=== PATIENT | female | born 1995 | race Two or more races ===

== ENCOUNTER 2019-07-06 09:16 | Observation (INO) | payer MEDICAID ==
[~2019-07-06 09:16] MED LIST: PREN-129 PO
== END 2019-07-06 11:30 | disposition home or self-care (01) | DRG 566 ==
LOC: LDRP 09:16
PROVIDERS: ADMIT Obstetrics & Gynecology; ATTEND Obstetrics & Gynecology
DX: O62.9 Abnormality of forces of labor, unspecified (principal); Z3A.38 38 weeks gestation of pregnancy
CPT/HCPCS: 59025; 81002; G0378

== ENCOUNTER 2019-07-06 19:33 | Inpatient (IN) | payer MEDICAID ==
[~2019-07-06] VITALS: Ht 215 cm; Wt 85.3 kg
[2019-07-06] MEDS ORDERED: LACT. RINGERS/OXYTOCIN 20UNITS 1,000 ML IV SCH (20:27)
[2019-07-06] MEDS ORDERED: NALBUPHINE HCL 10 MG/1ml INJECTION IV PRN (20:30)
[2019-07-06] MEDS ORDERED: DERMOPLAST 60ML BOTTLE TOP PRN (20:30)
[2019-07-06] MEDS ORDERED: LIDOCAINE 2%HCL (LOCAL ANESTH.) INJ 20ML MDV ID ONE (20:30)
[2019-07-06] MEDS ORDERED: CARBOPROST TROMETHAMINE 250 MCG/1ML VIAL IM PRN (20:30)
[2019-07-06] MEDS ORDERED: METHYLERGONOVINE MALEATE 0.2 MG/ML AMP IM PRN (20:30)
[2019-07-06] MEDS ORDERED: WITCH HAZEL-GLYCERIN PAD TOP PRN (20:30)
[2019-07-06] MEDS ORDERED: PHISODERM TOP SOLN 240ML BTL TOP PRN (20:30)
[2019-07-06] MEDS: LACTATED RINGER'S 1,000 ML IV SCH (20:40)
[2019-07-06] MEDS ORDERED: PENICILLIN G POT 5MIL/D5 50ML 50 ML IV ONE (21:00)
[2019-07-06 21:14] LABS: Eosinophils # (auto) 0 uL; Hemoglobin 11.8 g/dL (12.2-16.2); Lymphocytes # (auto) 2.5 uL
[2019-07-06 21:28] LABS: INR < 0.93 (0.9-1.15); Partial Thromboplastin Time 25.5 sec (23.64-32.05)
[2019-07-06 21:36] LABS: Basophils # (auto) 0 uL; Basophils % (auto) 0.3 % (0.0-2.0); Eosinophils % (auto) 0.3 % (0.0-7.0); Hematocrit 35.5 % (36.0-46.0); Lymphocytes % (auto) 18.1 % (10.0-50.0); Mean Corpuscular Hemoglobin 30.2 pg (28.0-32.0); Mean Corpuscular Hgb Conc. 33.1 g/dL (32.0-36.0); Monocytes # (auto) 0.9 uL; Monocytes % (auto) 6.3 % (0.0-12.0); Neutrophils # (auto) 10.2 uL; Nucleated Red Blood Cells % 0.1 %; Red Cell Distribution Width 13.9 % (11.8-14.3); White Blood Cell 13.6 10^3/uL (4.4-10.8)
[2019-07-06 21:38] LABS: Albumin 2.8 g/dL (3.4-5.0); Calcium 8.5 mg/dL (8.5-10.1); Potassium 3.6 mmol/L (3.5-5.1)
[2019-07-06 21:41] LABS: BUN/Creatinine Ratio 10.8; Bilirubin, Total 0.4 mg/dL (0.2-1.0); Total Protein 6.5 g/dL (6.4-8.2)
[2019-07-06 21:52] LABS: Platelet Count (auto) 81 10^3/uL (140-450)
[2019-07-07] VITALS (7 sets, daily range): BP systolic 93–117; BP diastolic 51–66
[2019-07-07] MEDS ORDERED: IBUPROFEN 600 MG TAB PO PRN (00:30)
[2019-07-07] MEDS ORDERED: PENICILLIN G POTASSIUM 2,500,000 UNITS in D5W 5% 50 ML IV SCH (01:00)
[2019-07-07 02:33] LABS: Urine Bacteria NONE SEEN /hpf (None Seen); Urine Blood Negative /uL (Negative); Urine Specific Gravity 1.008 (1.001-1.035); Urine WBC <1 /hpf (0 - 5)
[2019-07-07 02:40] LABS: Alcohol, Urine < 3.0 mg/dL (0-5); Amphetamine Screen, Urine NEGATIVE (NEGATIVE); Barbiturate Scree,Urine NEGATIVE (NEGATIVE); Benzodiazephine Screen, Urine NEGATIVE (NEGATIVE); Cannabinoid Screen, Urine NEGATIVE (NEGATIVE); Cocaine Screen, Urine NEGATIVE (NEGATIVE); Opiate Scree,Urine NEGATIVE (NEGATIVE); Phencyclidine Screen, Urine NEGATIVE (NEGATIVE)
--- NOTE | 2019-07-07 06:10 | NUR ---
Report received from HAZEL Mcgee on stable pt. Assumed care. Addendum: 07/07/19 at 0735 by Leelee Armenta RN Amended: Links added.
--- NOTE | 2019-07-07 09:40 | NUR ---
Dr. Leslie at bedside. Addendum: 07/07/19 at 1302 by Leelee Armenta RN noted charted on wrong pt.
--- NOTE | 2019-07-07 14:15 | NUR ---
Report given to Parris Veliz RN on stable pt. Relinquished care.
--- NOTE | 2019-07-07 17:30 | NUR ---
Discharge: Discharge instructions given as ordered. Pt encouraged to follow up with REGIONAL MERCHANDISING MANAGER as instructed. All questions and concerns addressed. Patient verbalized understanding.
[2019-07-08 02:48] VITALS: BP 94/50
[2019-07-08 06:50] VITALS: BP 102/52
--- NOTE | 2019-07-08 11:00 | NUR ---
Discharge: Patient taken to vehicle via wheelchair with all personal belongings, accompanied by staff and family member. No distress noted at time of departure, no adverse changes in status since initial assessment.
[2019-07-09 07:06] LABS: RPR Non Reactive (Non Reactive)
== END 2019-07-08 11:00 | disposition home or self-care (01) | DRG 560 ==
LOC: LDRP 19:33 → OBSVTOIN 19:33 → LDRP 20:47
PROVIDERS: ADMIT Specialist; ATTEND Specialist
PROC: 10E0XZZ Delivery of Products of Conception, External Approach (ICD-10-PCS; principal; 2019-07-07)
DX: O80 Encounter for full-term uncomplicated delivery (principal); Z37.0 Single live birth; Z3A.38 38 weeks gestation of pregnancy
CPT/HCPCS: 36415; 59025; 59409; 80053; 80307; 81001; 81002; 84112; 85025; 85610; 85730; 86592; 86850; 86900; 86901; 96365; 96366; G0378; J2540; J2590; J7060

== ENCOUNTER 2024-10-16 11:12 | Observation (INO) | payer MEDICAID ==
--- NOTE | 2024-10-16 12:25 | DVH ---
Procedure: US BIOPHYSICAL PROFILE 10/16/2024 12:08 PM Indication: r/o IUGR Comparison: None Technique: Sonogram of gravid uterus utilizing grayscale and color techniques. FINDINGS: Single living intrauterine gestation. Presentation: Cephalic Placenta: Posterior heart rate: 164 bpm MARITA: 13.9 cm Maternal cervix: Not visualized Biophysical Profile: breathing score: 2 movement score: 2 tone: 2 Quantitative MARITA score: 2 Total score: 8/8 IMPRESSION: 1. Single living as above. 2. Biophysical profile score: 8/8.
== END 2024-10-16 13:22 | disposition home or self-care (01) ==
LOC: LDRP 11:12
PROVIDERS: ADMIT Obstetrics & Gynecology; ATTEND Obstetrics & Gynecology
DX: O36.5930 Maternal care for other known or suspected poor fetal growth, third trimester, not applicable or unspecified (principal); Z98.890 Other specified postprocedural states; Z79.899 Other long term (current) drug therapy; Z3A.36 36 weeks gestation of pregnancy
CPT/HCPCS: 59025; 76818; 81002; G0378

== ENCOUNTER → 2024-10-16 | Outpatient (CLI) | payer MEDICAID ==
[2024-10-16 10:55] LABS: Urine Bacteria None Seen /hpf (None Seen)
[2024-10-16 11:12] LABS: Basophils # (auto) 0 10 ^3/uL (0-0.2); Basophils % (auto) 0.3 % (0.0-2.0); Eosinophils # (auto) 0.1 10 ^3/uL (0-0.8); Eosinophils % (auto) 0.6 % (0.0-7.0); Hematocrit 36.1 % (36.0-46.0); Hemoglobin 12.1 g/dL (12.2-16.2); Lymphocytes # (auto) 2.2 10 ^3/uL (0.4-5.4); Lymphocytes % (auto) 19.5 % (10.0-50.0); Mean Corpuscular Hemoglobin 30.7 pg (28.0-32.0); Mean Corpuscular Hgb Conc. 33.4 g/dL (32.0-36.0); Mean Corpuscular Volume 91.8 fL (80.0-100.0); Monocytes # (auto) 0.5 10 ^3/uL (0-1.3); Monocytes % (auto) 4.7 % (0.0-12.0); Neutrophils # (auto) 8.4 10 ^3/uL (1.6-8.6); Neutrophils % (auto) 74.9 % (37.0-80.0); Platelet Count (auto) 85 10^3/uL (140-450); Red Blood Cells 3.93 10^6/uL (4.0-5.20); Red Cell Distribution Width 12.8 % (11.8-14.3); White Blood Cell 11.1 10^3/uL (4.4-10.8)
[2024-10-16 11:17] LABS: Urine Blood Negative /uL (Negative); Urine Clarity Clear (Clear); Urine Color Light-Yellow (Yellow); Urine Protein, UAD Negative (Negative); Urine Specific Gravity 1.015 (1.001-1.035); Urine Squamous Epithelial Cell FEW /hpf (<5); Urine Urobilinogen Normal (Negative); Urine WBC 1 /hpf (0 - 5); Urine pH 6.5 (5.0-9.0)
[2024-10-16 11:28] LABS: Giant Platelets Moderate; Platelet Estimate Decrea
[2024-10-16 11:33] LABS: Alanine Aminotransferase 15 U/L (7-40); Albumin 3.8 g/dL (3.2-4.8); Anion Gap 9 (5-15); Aspartate Aminotransferase 20 U/L (13-40); Calcium 9.3 mg/dL (8.7-10.4); Carbon Dioxide 21 mmol/L (20-31); Potassium 3.6 mmol/L (3.5-5.1); Sodium 138 mmol/L (136-145)
[2024-10-16 11:34] LABS: Bilirubin, Total 0.4 mg/dL (0.2-1.0); Total Protein 6.5 g/dL (5.7-8.2)
[2024-10-16 11:36] LABS: Alkaline Phosphatase 198 U/L (46-116); Blood Urea Nitrogen 7 mg/dL (9-23); Chloride 108 mmol/L (98-107); Free T4 (Free Thyroxine) 0.83 ng/dL (0.89-1.76); Glucose 110 mg/dL (74-106); T3 Total 1.62 ng/mL (0.60-1.81)
[2024-10-16 11:37] LABS: Ferritin 6.6 ng/mL (10-291)
[2024-10-16 11:52] LABS: Iron 71 ug/dL (50-170)
[2024-10-16 11:55] LABS: Total Iron Binding Capacity 546 ug/dL (250-425)
[2024-10-16 12:31] LABS: RUBELLA Positive
[2024-10-17 07:06] LABS: RPR Non Reactive (Non Reactive)
[2024-10-17 09:06] LABS: T3 Uptake 12 % (24-39); Thyroid Peroxidase (TPO) Ab 23 IU/mL (0-34)
[2024-10-17 11:06] LABS: Thyroglobulin Antibody <1.0 IU/mL (0.0-0.9)
[2024-10-20 13:06] LABS: QuantiFERON-TB Gold Plus Positive (Negative)
[2024-10-21 13:06] LABS: Treponema Pallidum Ab LC Non Reactive (Non Reactive)
== END | disposition home or self-care (01) ==
LOC: LAB 10:34
PROVIDERS: ATTEND Nurse Practitioner Women's Health
DX: Z34.00 Encounter for supervision of normal first pregnancy, unspecified trimester (principal); Z36.0 Encounter for antenatal screening for chromosomal anomalies; N39.0 Urinary tract infection, site not specified
CPT/HCPCS: 36415; 80053; 81001; 82306; 82728; 82951; 83036; 83540; 83550; 84436; 84439; 84443; 84479; 84480; 85025; 86376; 86592; 86703; 86762; 86780; 86800; 86850; 86900; 86901; 87086; 87340; 87902

== ENCOUNTER 2024-10-19 10:08 | Observation (INO) | payer MEDICAID ==
--- NOTE | 2024-10-19 10:50 | DVH ---
CLINICAL HISTORY: Intrauterine growth restriction. COMPARISON: US BIOPHYSICAL PROFILE on DOS: 10/16/24 TECHNIQUE: biophysical profile was performed. Transabdominal sonographic images of the fetus we re obtained. FINDINGS: The fetus is in cephalic position. heart rate measures 141 BPM. Amniotic fluid index measures 12.5 cm. The placenta is posterior in position. No placenta previa or abruption seen. BPP profile is an overall score of 8/8, with 2/2 points for breathing, with at least one episode of breathing over a 30 second duration during a 30 minute observation, 2/2 points for m ovements, with 3 or more discrete body or limb movements, 2/2 points for tone, with one or more episodes of extremity extension with return to flexion, or opening and closing of hand, and 2/ 2 points for amniotic fluid, with at least 1 pocket of amniotic fluid that measures 2 cm in 2 perpend icular planes. IMPRESSION: BPP score of 8/8.
--- NOTE | 2024-10-19 12:34 | DVHDS2 ---
Physician Discharge Progress N Final Diagnosis: Suspected growth restriction Secondary Diagnosis: Encounter for surveillance Operations or Procedures: Operations or Procedures NST/BPP/MARITA all normal PATIENT: LIDIA PINA ACCT: [id number] UNIT: [id number] : 1995 LOC: LD ROOM / BED: TRIAGE2 / A AGE / SEX: 29 / F ADM STATUS: ADM IN SERVICE 1019 ORDERING PHYSICIAN: CINDY BAUER DO PROCEDURE(s): BPP - BIOPHYSICAL PROFILE REASON: IUGR ORDER NUMBER(s): [id number], ACCESSION NUMBER(s): [id number] CLINICAL HISTORY: Intrauterine growth restriction. COMPARISON: US BIOPHYSICAL PROFILE on DOS: 10/16/24 TECHNIQUE: biophysical profile was performed. Transabdominal sonographic images of the fetus were obtained. FINDINGS: The fetus is in cephalic position. heart rate measures 141 BPM. Amniotic fluid index measures 12.5 cm. The placenta is posterior in position. No placenta previa or abruption seen. BPP profile is an overall score of 8/8, with 2/2 points for breathing, with at least one episode of breathing over a 30 second duration during a 30 minute observation, 2/2 points for movements, with 3 or more discrete body or limb movements, 2/2 points for tone, with one or more episodes of extremity extension with return to flexion, or opening and closing of hand, and 2/2 points for amniotic fluid, with at least 1 pocket of amniotic fluid that measures 2 cm in 2 perpendicular planes. IMPRESSION: BPP score of 8/8. ATED BY: PAKO MAYBERRY DO DICTATED DATE/TIME: 10/19/241046 SIGNED BY: PAKO MAYBERRY DO SIGNED DATE/TIME: 10/19/241046 Condition on Discharge: Stable Disposition: Home Discharge Instructions: Diet: Regular Activity: No Restrictions, As Tolerated Follow Up/Referral: As scheduled Medications: N/A Follow Up Care: Discharge Statement: "Patient was advised to return to the ER or call 911 if any headaches, dizziness, shortness of breath, chest pain, abdominal pain, bleeding, fevers, or worsening of medical condition. Patient was counseled about treatment plan, medications, possible side effects, patientverbalized understanding. All questions were answered to the best of my ability. This discharge took greater then 30 minutes in planning, reviewing documentation, counseling the patient, and discussing with other team members." CINDY BAUER DO Oct 19, 2024 12:34
== END 2024-10-19 11:27 | disposition home or self-care (01) ==
LOC: LDRP 10:08
PROVIDERS: ADMIT Obstetrics & Gynecology; ATTEND Obstetrics & Gynecology
DX: O36.5130 Maternal care for known or suspected placental insufficiency, third trimester, not applicable or unspecified (principal); Z3A.37 37 weeks gestation of pregnancy; Z79.899 Other long term (current) drug therapy; Z98.890 Other specified postprocedural states
CPT/HCPCS: 59025; 76818; 81002; G0378

== ENCOUNTER 2024-10-22 10:05 | Observation (INO) | payer MEDICAID ==
--- NOTE | 2024-10-22 10:51 | DVH ---
CLINICAL HISTORY: Intrauterine growth restriction. COMPARISON: US BIOPHYSICAL PROFILE on DOS: 10/19/24, US BIOPHYSICAL PROFILE on DOS: 10/16/24 TECHNIQUE: biophysical profile was performed. Transabdominal sonographic images of the fetus we re obtained. FINDINGS: The fetus is in cephalic position. heart rate measures 130 BPM. Amniotic fluid index measures 12.4 cm. The placenta is fundal in position, with no sonographic evidence of previa or abrup tion. BPP profile is an overall score of 8/8, with 2/2 points for breathing, with at least one episode of breathing over a 30 second duration during a 30 minute observation, 2/2 points for m ovements, with 3 or more discrete body or limb movements, 2/2 points for tone, with one or more episodes of extremity extension with return to flexion, or opening and closing of hand, and 2/ 2 points for amniotic fluid, with at least 1 pocket of amniotic fluid that measures 2 cm in 2 perpend icular planes. IMPRESSION: BPP score of 8/8.
--- NOTE | 2024-10-22 21:04 | DVHDS2 ---
Physician Discharge Progress N Final Diagnosis: testing for IUGR Operations or Procedures: Operations or Procedures 29yo IUP@37.3wks, Denies UCs/LOF/VB/JACKSON/vision changes/RUQ pain. Endorses +FM. VSS UA wnl NST reactive BPP wnl kick counts and Preeclampsia warning signs reviewed. Labor precautions given and when to return to the hospital. Condition on Discharge: Stable Disposition: Home Discharge Instructions: Diet: Regular Activity: No Restrictions, As Tolerated Medications: see med list Follow Up Care: Specialist: f/u in 3 days Discharge Statement: "Patient was advised to return to the ER or call 911 if any headaches, dizziness, shortness of breath, chest pain, abdominal pain, bleeding, fevers, or worsening of medical condition. Patient was counseled about treatment plan, medications, possible side effects, patientverbalized understanding. All questions were answered to the best of my ability. This discharge took greater then 30 minutes in planning, reviewing documentation, counseling the patient, and discussing with other team members." MAT PLUNKETT CNM Oct 22, 2024 21:04
== END 2024-10-22 11:08 | disposition home or self-care (01) ==
LOC: UNDOADMOB 10:05 → LDRP 10:05 → UNDODISOB 11:08
PROVIDERS: ADMIT Obstetrics & Gynecology; ATTEND Obstetrics & Gynecology
DX: O36.5130 Maternal care for known or suspected placental insufficiency, third trimester, not applicable or unspecified (principal); Z3A.37 37 weeks gestation of pregnancy; Z79.899 Other long term (current) drug therapy
CPT/HCPCS: 59025; 76818; 81002; 94760; G0378

== ENCOUNTER 2024-11-13 11:48 | Inpatient (IN) | payer MEDICAID ==
[~2024-11-13] VITALS: Ht 170.2 cm; Wt 81.6 kg
[2024-11-13] MEDS ORDERED: NALBUPHINE HCL 10 MG/1ml INJECTION IV PRN (12:30)
[2024-11-13] MEDS ORDERED: NALBUPHINE HCL 10 MG/1ml INJECTION IM PRN (12:30)
[2024-11-13] MEDS ORDERED: LIDOCAINE 2%HCL (LOCAL ANESTH.) INJ 20ML MDV IJ PRN (12:30)
[2024-11-13 13:10] LABS: Urine Bacteria None Seen /hpf (None Seen)
[2024-11-13] MEDS ORDERED: TERBUTALINE SULFATE 1 MG/ML 1ML VIAL SC PRN (13:15)
--- NOTE | 2024-11-13 13:16 | DVHHP2 ---
OB CC & HPI Date Date of Admission: Nov 13, 2024 Patient Identification: : 4 Para: 2 EDC: Nov 09, 2024 EGA: 40wks Chief Complaints: Reason for admission: active labor, other (early labor) Admission Nurse Assessment Rev: No History of Present Complaints pt is admitted for early labor,no rom or vag bleeding Past Medical History Cardiac: No pertinent Hx Pulmonary: No pertinent Hx Central Nervous System: No pertinent Hx GI: No pertinent Hx Hemotology/Oncology: No pertinent Hx Hepatobiliary: No pertinent Hx Psychiatric: No pertinent Hx Musculoskeletal: No pertinent Hx Rheumotologic: No pertinent Hx Infectious Disease: No peritnent Hx ENT: No pertinent Hx Renal/: No pertinent Hx Endocrine: No pertinent Hx Dermatology: No pertinent Hx Past Surgical History: No pertinent Hx OB History OB History Care: Good Care Ultrasounds: Normal mid trimester US Obstetrical Complications: None Medical Complications: None Allergies: Coded Allergies: NO KNOWN ALLERGIES (Unverified , 03/06/14) Home Meds Reported Medications Vit W/ Ferrous Fumara () Tab, 1 TAB PO DAILY, TAB 03/07/14 Current Medications Current Medications Medications (Trade) Dose Ordered Sig/Veronica Route PRN Reason Start Time Stop Time Status Last Admin Lactated Ringer's 1,000 ml @ 125 mls/hr Q8H IV 11/13/24 12:30 Nalbuphine HCl (Nubain) 10 mg Q4HP PRN IM MODERATE PAIN (4-6 PAIN SCALE) 11/13/24 12:30 Nalbuphine HCl (Nubain) 10 mg Q4HP PRN IV MODERATE PAIN (4-6 PAIN SCALE) 11/13/24 12:30 Witch Ivy (Tucks) 1 pad PRN PRN TOP PERINEAL AREA DISCOMFORT 11/13/24 12:30 Sodium Lauryl Sulfate (Phisoderm) 240 ml PRN PRN TOP PERINEAL AREA DISCOMFORT 11/13/24 12:30 Benzocaine (Dermoplast) 1 applic PRN PRN TOP PERINEAL AREA DISCOMFORT 11/13/24 12:30 Lidocaine HCl (Xylocaine) 20 ml ONCE PRN IJ PERINEAL AREA DISCOMFORT 11/13/24 12:30 Family & Social History Family/Social History Blood Type: Unknown Rubella: unknown RPR/VDRL: Unknown GBS Status: Unknown HBsAG: Unknown Review of Systems Constitutional: No symptom reported Ears, Nose, & Throat: No symptom reported Eyes: No symptom reported Pulmonary/Respiratory: No symptom reported Cardiovascular: No symptom reported Gastrointestinal: No symptom reported Genitourinary: No symptom reported Musculoskeletal: No symptom reported Skin: No symptom reported Psychiatric: No symptom reported Endocrine: No symptom reported Hemotologic/Lymphatic: No symptom reported OB Admission Exam Physical Exam HEENT: TMs Normal, Fontanelles Normal, Nasal Mucosa Normal, Eyes non-injected, Oropharynx Normal, PERRLA, Moist Membranes, EOMI Heart: Rhythm Normal Lungs: Clear Abdomen: Non tender Extremities: Normal Reflexes: Normal Cervical Dilatation: 3cm Effacement: 50% Station: -2 Membranes: Intact Heart Rate: 130's Accelerations: Accelerations Present Decelerations: No Decelerations Short Term Variability: Present [facility] Variability: Average (6-25) Contractions on Admission: 6-10 Minutes Apart Intensity: Moderate OB Plan Plan Admitting Diagnosis: early labor Plan: Expectant Management Induction Methd: Pitocin protocol Other Plan: informed consent obtained Visit Coding OBGYN Date of Service: Nov 13, 2024 Billing Provider: AMBROCIO PAUL DO FUSE SPOOLER Common Visit Codes: [id number] OBS CARE (HIGH) AMBROCIO PAUL DO Nov 13, 2024 13:16
[2024-11-13 13:40] LABS: Anion Gap 9 (5-15); Aspartate Aminotransferase 17 U/L (13-40); Calcium 9.3 mg/dL (8.7-10.4); Carbon Dioxide 21 mmol/L (20-31); Chloride 106 mmol/L (98-107); Glucose 74 mg/dL (74-106); Potassium 4.1 mmol/L (3.5-5.1); Sodium 136 mmol/L (136-145)
[2024-11-13 13:41] LABS: Albumin 4.1 g/dL (3.2-4.8); Basophils # (auto) 0.1 10 ^3/uL (0-0.2); Basophils % (auto) 0.6 % (0.0-2.0); Bilirubin, Total 0.6 mg/dL (0.2-1.0); Eosinophils # (auto) 0 10 ^3/uL (0-0.8); Eosinophils % (auto) 0.2 % (0.0-7.0); Hematocrit 36.1 % (36.0-46.0); Hemoglobin 11.8 g/dL (12.2-16.2); Lymphocytes % (auto) 14.4 % (10.0-50.0); Mean Corpuscular Hgb Conc. 32.7 g/dL (32.0-36.0); Mean Corpuscular Volume 91.7 fL (80.0-100.0); Monocytes # (auto) 0.8 10 ^3/uL (0-1.3); Monocytes % (auto) 5.5 % (0.0-12.0); Neutrophils # (auto) 11.3 10 ^3/uL (1.6-8.6); Neutrophils % (auto) 79.3 % (37.0-80.0); Nucleated Red Blood Cells % 0.1 %; Platelet Count (auto) 81 10^3/uL (140-450); Red Blood Cells 3.94 10^6/uL (4.0-5.20); Red Cell Distribution Width 13.8 % (11.8-14.3); Total Protein 6.7 g/dL (5.7-8.2); White Blood Cell 14.2 10^3/uL (4.4-10.8)
[2024-11-13 13:45] LABS: Alanine Aminotransferase < 9 U/L (7-40); Alkaline Phosphatase 283 U/L (46-116); BUN/Creatinine Ratio 6.9 (10.0-20.0); Blood Urea Nitrogen < 5 mg/dL (9-23)
[2024-11-13 13:46] LABS: Urine Blood Negative /uL (Negative); Urine Clarity Clear (Clear); Urine Color Light-Yellow (Yellow); Urine Protein, UAD Negative (Negative); Urine Specific Gravity 1.006 (1.001-1.035); Urine Squamous Epithelial Cell FEW /hpf (<5); Urine Urobilinogen Normal (Negative); Urine WBC 3 /HPF (0-5); Urine pH 6.5 (5.0-9.0)
[2024-11-13 13:52] LABS: INR 0.94 (0.9-1.15); Partial Thromboplastin Time 30.6 SEC (24.5-34.5)
[2024-11-13 13:57] LABS: Fern Testing Negative
[2024-11-13 14:06] LABS: Amphetamine Screen, Urine Neg (NEGATIVE); Barbiturate Scree,Urine Neg (NEGATIVE); Opiate Scree,Urine Neg (NEGATIVE); Phencyclidine Screen, Urine Neg (NEGATIVE)
[2024-11-13 14:07] LABS: Benzodiazephine Screen, Urine Neg (NEGATIVE); Cannabinoid Screen, Urine Neg (NEGATIVE); Cocaine Screen, Urine Neg (NEGATIVE)
[2024-11-13] MEDS: PHISODERM TOP SOLN 240ML BTL TOP PRN (14:07)
[2024-11-13] MEDS: DERMOPLAST 60ML BOTTLE TOP PRN (14:07)
[2024-11-13] MEDS: WITCH HAZEL-GLYCERIN PAD TOP PRN (14:07)
[2024-11-13] MEDS: PENICILLIN G POT 5MIL/D5 50ML 50 ML IV ONE (14:30)
[2024-11-13] MEDS: LACT. RINGERS/OXYTOCIN 20UNITS 1,000 ML IV SCH (14:31)
[2024-11-13 15:27] LABS: Large Platelets FEW
[2024-11-13 15:28] LABS: Giant Platelets Moderate; Platelet Estimate Decreased
[2024-11-13] MEDS ORDERED: ePHEDrine SULFATE 50 MG/ML AMP IV ONE (16:00)
[2024-11-13] MEDS: LACTATED RINGER'S 1,000 ML IV SCH (16:10)
[2024-11-13] MEDS ORDERED: ROPIVACAINE HCL 400mg/200ml BAG (2mg/ml) INJ ONE (16:10)
[2024-11-13] MEDS: ROPIVACAINE HCL 200 ML ONE (16:13)
[2024-11-13] MEDS: LACT. RINGERS/OXYTOCIN 20UNITS 500 ML IV ONE ×2 (17:55)
[2024-11-13] MEDS ORDERED: PENICILLIN G POTASSIUM 2,500,000 UNITS in D5W 5% 50 ML IV SCH (18:15)
[2024-11-13] MEDS ORDERED: ACETAMINOPHEN 325 MG TAB PO PRN (18:15)
--- NOTE | 2024-11-13 18:35 | LDN2 ---
Labor and Delivery Note Date 11/13/24 Age 29 5 Para 5 now AB 0 EDC 11/09/2024 EGA 40.4 Diagnosis IOL for Postdates then Vaginal Delivery: VTX Vacuum Assisted: No Placenta: Spontaneous Sex: Male Weight PENDING Apgars 8/9 Nuchal Cord Transected: No (THIN) Amniotic Fluid: Meconium Stained, Thin Anesthesia EPIDURAL Episiotomy: No Extension: No Repaired with N/A EBL QBL: 350 mL Labs Laboratory Tests 10/16/24 10:45: Hepatitis B Surface Antigen Negative, HIV (1&2) Antibody Negative, Rubella Antibody Positive Blood Bank 11/13/24 12:38: Blood Type A POSITIVE Complications NONE Conditions STABLE Emd Teacher Cisco SANDERS Comments/Significant Med Giancarlo At 1709 this 29yo now delivered a viable Male infant by w/ APGARS 8/9. MAHENDRA with compound presentation. Infant placed skin to skin on pts chest. Cord clamped and cut after pulsation ceased. Intact 3-vessel cord placenta delivered spontaneously, Josafat. Pitocin IV bolus started. Patient had epidural. Cervix/vagina inspected (intact) and intact perineum. periurethral abrasions noted; hemostatic, not repaired Fundus at U, firm, midline, and light lochia. QBL 350 ml. VSS. Count correct x2. Patient to care and baby to couplet care, both stable. Visit Coding OBGYN Date of Service: Nov 13, 2024 Billing Provider: MAT PLUNKETT CNM CUSTOMER CARE ASSISTANT Common Visit Codes: [id number] INP/OBS CARE(MOD) CUSTOMER CARE ASSISTANT Procedure Codes: 83127-MLC DEL INCLUDING ELYSIA CARPENTER STDYesenia SANDERSWF Nov 13, 2024 18:35
[2024-11-13] MEDS: IBUPROFEN 600 MG TAB PO PRN (18:59)
[2024-11-13] MEDS: DOCUSATE SOD 100 MG CAP PO SCH (22:00)
[2024-11-13] MEDS ORDERED: PREN-129 PO (22:24)
[2024-11-13] MEDS ORDERED: IBU600T PO (22:24)
[2024-11-13] MEDS ORDERED: DOCU-265 PO (22:24)
[2024-11-13 23:00] VITALS: BP 109/59; PULSE 71; RESP 16; TEMP 97.9; O2SAT 95
--- NOTE | 2024-11-14 00:38 | DVHPN2 ---
Progress Note Date Seen: Nov 14, 2024 Subjective S: bleeding is less, eating food without issues, denies lightheaded/dizziness, pain well controlled with oral medications, no concerns with urinating, passing flatus, no BM yet, ambulating well, well vital signs Vital Sign Date Time Temp Pulse Resp B/P (MAP) Pulse Ox O2 Delivery O2 Flow Rate FiO2 11/13/24 23:00 97.9 71 16 109/59 (76) 95 97.9 11/13/24 19:50 Room Air Total Intake and Output 11/13/24 11/13/24 11/14/24 15:00 23:00 07:00 Output Total 1700 ml Balance -1700 ml medications Current Medications Medications Dose Ordered Sig/Veronica Route Start Time Stop Time Status Last Admin Dose Admin Claudia Haynes 1 pad PRN PRN TOP 11/13/24 12:30 11/13/24 14:07 1 PAD Sodium Lauryl Sulfate 240 ml PRN PRN TOP 11/13/24 12:30 11/13/24 14:07 240 ML Benzocaine 1 applic PRN PRN TOP 11/13/24 12:30 11/13/24 14:07 1 APPLIC Ibuprofen 600 mg Q6HP PRN PO 11/13/24 18:15 11/13/24 18:59 600 MG Acetaminophen 650 mg Q6HPRN PRN PO 11/13/24 18:15 Docusate Sodium 200 mg HS PO 11/13/24 22:00 Prenat Multivit/ Braddock/Iron/Folic Ac 1 DAILY PO 11/14/24 10:00 laboratory and microbiology Laboratory Tests 11/13/24 12:38 Test 11/13/24 12:38 Range/Units Serum Glucose 74 74-106 mg/dL Objective O: VSS Chest: heart sounds normal and lung sounds clear bilaterally Abd: soft, non-tender, fundus at U/firm/midline, active bowel sounds, no rebound or guarding Perineum: intact, no erythema/edema noted Ext: Non-tender, No edema, 2+ BLE DTRs Lochia: minimal See lab results Problems(with codes): (1) (normal spontaneous vaginal delivery) (2) Intact perineum Assessment/Plan A: 29yo now PPD#1 s/p Rh+ P: D/C home this evening Rx sent to pharmacy precautions and preeclampsia warning signs reviewed F/U with [facility] OB office in 2 weeks Plan discussed with: Patient, Spouse Visit Coding OBGYN Date of Service: Nov 14, 2024 Billing Provider: MAT PLUNKETT CNM DRESSED POULTRY GRADER Common Visit Codes: [id number] INP/OBS CARE(MOD) MAT PLUNKETT CNM Nov 14, 2024 00:38
--- NOTE | 2024-11-14 00:41 | DVHDS2 ---
Obstetrics Discharge Summary Obstetrics Discharge Summary Date of Admission: Nov 13, 2024 Date of Discharge: Nov 14, 2024 Reason For Admission: Onset of Labor Procedures: NST Intrapartum Procedures: Spontaneous vaginal deliv Procedures: Hct/date: (11/14/2024), Hgb/date: (11/14/2024) Operative Complicat: None Discharge Diagnosis: Term -Delivered Discharge Information: Activity (as tolerated, no heavy lifting and nothing in the vagina for 6 weeks), Diet (Routine), Medications (RX sent ), Instructions (Routine), Discharge to (Home), Accompanied by (partner), Discarge date (11/14/2024) Visit Coding OBGYN Date of Service: Nov 14, 2024 Billing Provider: MAT PLUNKETT CNM FLOOR LAYER APPRENTICE Common Visit Codes: 12059-DOJ/OBS DISCH DAY <30MIN MAT PLUNKETT CNM Nov 14, 2024 00:41
[2024-11-14 03:00] VITALS: BP 106/64; PULSE 62; RESP 18; TEMP 97.8; O2SAT 97
[2024-11-14 06:06] LABS: RPR Non Reactive (Non Reactive)
[2024-11-14 07:30] VITALS: BP 119/74; PULSE 64; RESP 16; TEMP 97.5; O2SAT 100
[2024-11-14 08:40] LABS: Basophils # (auto) 0 10 ^3/uL (0-0.2); Basophils % (auto) 0.3 % (0.0-2.0); Eosinophils # (auto) 0 10 ^3/uL (0-0.8); Eosinophils % (auto) 0.4 % (0.0-7.0); Hematocrit 34.5 % (36.0-46.0); Hemoglobin 11.4 g/dL (12.2-16.2); Lymphocytes # (auto) 2.1 10 ^3/uL (0.4-5.4); Lymphocytes % (auto) 15.9 % (10.0-50.0); Mean Corpuscular Hemoglobin 30.4 pg (28.0-32.0); Mean Corpuscular Hgb Conc. 33.2 g/dL (32.0-36.0); Mean Corpuscular Volume 91.7 fL (80.0-100.0); Monocytes # (auto) 0.9 10 ^3/uL (0-1.3); Monocytes % (auto) 6.6 % (0.0-12.0); Neutrophils % (auto) 76.8 % (37.0-80.0); Nucleated Red Blood Cells % 0.1 %; Platelet Count (auto) 79 10^3/uL (140-450); Red Blood Cells 3.76 10^6/uL (4.0-5.20); Red Cell Distribution Width 13.6 % (11.8-14.3)
[2024-11-14 11:15] VITALS: BP 113/74; PULSE 70; RESP 14; TEMP 97.8; O2SAT 95
[2024-11-14] MEDS: CARBOPROST TROMETHAMINE 250 MCG/1ML VIAL IM ONE (11:53)
[2024-11-14] MEDS: METHYLERGONOVINE MALEATE 0.2 MG/ML AMP IM ONE (11:53)
[2024-11-14] MEDS: LACTATED RINGER'S 1,000 ML IV ONE (11:53)
[2024-11-14] MEDS: DIPHENOXYLATE W/ATROPINE 2.5 MG TAB ONE (11:54)
[2024-11-14] MEDS: PRENATAL VITAMIN TAB PO SCH (11:59)
[2024-11-14 15:30] VITALS: BP 111/64; PULSE 80; RESP 16; TEMP 98; O2SAT 97
== END 2024-11-14 18:28 | disposition home or self-care (01) | DRG 560 ==
LOC: LDRP 11:48 → OBSVTOIN 12:23 → LDRP 21:27
PROVIDERS: ADMIT Obstetrics & Gynecology; ATTEND Obstetrics & Gynecology
PROC: 10E0XZZ Delivery of Products of Conception, External Approach (ICD-10-PCS; principal; 2024-11-13)
PROC: 3E0R3BZ Introduction of Anesthetic Agent into Spinal Canal, Percutaneous Approach (ICD-10-PCS; 2024-11-13)
PROC: 3E0R33Z Introduction of Anti-inflammatory into Spinal Canal, Percutaneous Approach (ICD-10-PCS; 2024-11-13)
DX: O48.0 Post-term pregnancy (principal); Z37.0 Single live birth; O71.82 Other specified trauma to perineum and vulva; O77.0 Labor and delivery complicated by meconium in amniotic fluid; Z3A.40 40 weeks gestation of pregnancy
CPT/HCPCS: 36415; 59025; 59409; 62282; 80053; 80307; 81001; 84112; 85025; 85610; 85730; 86592; 86803; 86850; 86900; 86901; 94760; 94762; 96360; 96361; 96365; 96366; G0378; J2540; J2590; J7060